=== PATIENT | female | born 1950 | race Caucasian/White ===

== ENCOUNTER 2017-12-14 14:00 | Outpatient (RCR) | payer MEDICARE | END 2017-12-14 14:30 | disposition home or self-care (01) | LOC: PT 14:00 | DX: M48.02 Spinal stenosis, cervical region (principal); G95.9 Disease of spinal cord, unspecified; M47.816 Spondylosis without myelopathy or radiculopathy, lumbar region | CPT/HCPCS: G8978-GP; G8979-GP ==

== ENCOUNTER 2018-12-04 15:00 | Outpatient (RCR) | payer MEDICARE | END 2018-12-04 15:30 | LOC: PT | DX: Z47.89 Encounter for other orthopedic aftercare (principal); Z98.890 Other specified postprocedural states ==

== ENCOUNTER → 2022-01-07 | Outpatient (CLI) | payer MEDICARE | LOC: RAD 16:45 | DX: M51.36 Other intervertebral disc degeneration, lumbar region (principal); M48.061 Spinal stenosis, lumbar region without neurogenic claudication; M47.816 Spondylosis without myelopathy or radiculopathy, lumbar region; M43.16 Spondylolisthesis, lumbar region ==

== ENCOUNTER → 2022-08-18 | Day surgery (SDC) | payer MEDICARE | LOC: MSO 06:46 | DX: H25.11 Age-related nuclear cataract, right eye (principal) | CPT/HCPCS: 00142; J0171; J2250; V2632 ==

== ENCOUNTER 2024-08-21 18:28 | Emergency (ER) | payer MEDICARE ==
[~2024-08-21] VITALS: Ht 149.9 cm; Wt 54.5 kg
[2024-08-21 21:16] VITALS: BP 168/85
== END 2024-08-21 21:17 | disposition home or self-care (01) ==
LOC: ED 18:28
DX: S01.511A Laceration without foreign body of lip, initial encounter (principal); R07.89 Other chest pain; W01.198A Fall on same level from slipping, tripping and stumbling with subsequent striking against other object, initial encounter